=== PATIENT | female | born 1980 | race Caucasian/White ===

== ENCOUNTER 2016-03-21 13:34 | Inpatient (IN) | payer OTHER ==
[2016-03-21] MEDS ORDERED: HYDROmorphone 1 MG/ML SYRINGE IVP STA ×6 (14:01→17:46)
[2016-03-21] MEDS ORDERED: ONDANSETRON 4 MG/2 ML VIAL IVP STA (14:01)
[2016-03-21] MEDS ORDERED: SODIUM CHLORIDE 0.9% 1,000 ML IV ONE ×3 (14:01→15:59)
[2016-03-21] MEDS ORDERED: KETOROLAC 60 MG/2 ML VIAL IVP STA (14:01)
[2016-03-21] MEDS ORDERED: HYDROmorphone 1 MG/ML SYRINGE ONE ×6 (14:14→17:50)
[2016-03-21] MEDS ORDERED: KETOROLAC 30 MG/ML VIAL ONE (14:14)
[2016-03-21] MEDS ORDERED: ONDANSETRON 4 MG/2 ML VIAL ONE (14:14)
[2016-03-21] MEDS ORDERED: LORazepam 2 MG/ML SYRINGE IVP STA ×2 (14:44→16:53)
[2016-03-21] MEDS ORDERED: LORazepam 2 MG/ML SYRINGE ONE ×2 (14:45→17:01)
[2016-03-21] MEDS ORDERED: AZITHROMYCIN INJ 500 MG in SODIUM CHLORIDE 0.9% 250 ML IV STA (14:46)
[2016-03-21] MEDS ORDERED: cefTRIAXone 1 GM in SODIUM CHLORIDE 0.9% MINIBAG 100 ML IV STA (14:46)
[2016-03-21] MEDS ORDERED: cefTRIAXone 1 GM VIAL ONE (14:56)
[2016-03-21] MEDS ORDERED: ALBUTEROL NEB 2.5 MG/3 ML INH STA (15:21)
[2016-03-21] MEDS ORDERED: ALBUTEROL NEB 2.5 MG/3 ML INH ONE (15:35)
[2016-03-21] MEDS ORDERED: METOCLOPRAMIDE 10 MG/2 ML VIAL IVP STA (15:44)
[2016-03-21] MEDS ORDERED: DEXAMETHASONE 10 MG/ML VIAL IVP STA (15:52)
[2016-03-21] MEDS ORDERED: DEXAMETHASONE 10 MG/ML VIAL ONE (16:01)
[2016-03-21] MEDS ORDERED: METOCLOPRAMIDE 10 MG/2 ML VIAL IVP ONE (16:01)
[2016-03-21] MEDS ORDERED: MORPHINE ER 60 MG TABLET PO STA ×2 (16:53→17:01)
[2016-03-21] MEDS ORDERED: IOPAMIDOL-300 100 ML VIAL IVP ONE (16:54)
[2016-03-21] MEDS ORDERED: ENOXAPARIN 80 MG/0.8 ML SYRINGE SUBQ STA (17:45)
[2016-03-21] MEDS ORDERED: ENOXAPARIN 80 MG/0.8 ML SYRINGE SUBQ ONE (17:50)
[2016-03-21] MEDS ORDERED: PROMETHAZINE 25 MG SUPP PR PRN (18:08)
[2016-03-21] MEDS ORDERED: ONDANSETRON ODT 4 MG TABLET TL PRN (18:08)
[2016-03-21] MEDS ORDERED: HYDROmorphone PCA 10 MG IV PRN (18:10)
[2016-03-21] MEDS ORDERED: VANCOMYCIN PER PHARMACY 0 GM in SODIUM CHLORIDE 0.9% 250 ML IV SCH (19:00)
[2016-03-21] MEDS ORDERED: LORazepam 2 MG/ML SYRINGE IVP PRN (19:02)
[2016-03-21] MEDS: SODIUM CHLORIDE 0.9% 1,000 ML IV SCH (19:19)
[2016-03-21] MEDS: PIPERACILLIN/TAZOBACTAM 3.375 GM in SODIUM CHLORIDE 0.9% MINIBAG 100 ML IV SCH (19:23)
[2016-03-21] MEDS ORDERED: HYDROmorphone 1 MG/ML SYRINGE IVP PRN (19:39)
[2016-03-21] MEDS: VANCOMYCIN INJ 1 GM in SODIUM CHLORIDE 0.9% 250 ML IV SCH (20:22)
[2016-03-21] MEDS: oxyCODONE 5 MG TABLET PO SCH ×2 (20:23→21:03)
[2016-03-21] MEDS ORDERED: BUTALBITAL PO PRN ×2 (21:07→21:28)
[2016-03-21] MEDS ORDERED: ASPIRIN PO PRN ×2 (21:07→21:28)
[2016-03-21] MEDS ORDERED: CAFFEINE PO PRN ×2 (21:07→21:28)
[2016-03-21] MEDS: SODIUM CHLORIDE FLUSH 0.9% 10 ML SYRINGE IVP SCH (21:26)
[2016-03-21] MEDS: LORazepam 2 MG/ML SYRINGE IVP PRN (22:20)
[2016-03-21] MEDS: HYDROmorphone 1 MG/ML SYRINGE IVP PRN (22:23)
[2016-03-21] MEDS: HYDROmorphone PCA 10 MG IV PRN (23:42)
[2016-03-22] MEDS: oxyCODONE 5 MG TABLET PO SCH ×7 (00:28→21:04)
[2016-03-22] MEDS: HYDROmorphone 1 MG/ML SYRINGE IVP PRN ×8 (00:29→22:44)
[2016-03-22] MEDS: LORazepam 2 MG/ML SYRINGE IVP PRN ×6 (00:29→22:44)
[2016-03-22] MEDS: PIPERACILLIN/TAZOBACTAM 3.375 GM in SODIUM CHLORIDE 0.9% MINIBAG 100 ML IV SCH ×5 (00:31→23:54)
[2016-03-22] MEDS ORDERED: diphenhydrAMINE 25 MG CAPSULE PO SCH (03:00)
[2016-03-22] MEDS: HYDROmorphone PCA 10 MG IV PRN ×3 (05:09→17:28)
[2016-03-22] MEDS: SODIUM CHLORIDE FLUSH 0.9% 10 ML SYRINGE IVP SCH ×3 (06:01→22:00)
[2016-03-22] MEDS: ENOXAPARIN 80 MG/0.8 ML SYRINGE SUBQ SCH ×2 (06:40→18:33)
[2016-03-22] MEDS: PANTOPRAZOLE 40 MG TABLET PO SCH (06:41)
[2016-03-22] MEDS: POTASSIUM CHLORIDE 20 MEQ TABLET PO SCH (08:34)
[2016-03-22] MEDS: DEXAMETHASONE 4 MG TABLET PO SCH (08:34)
[2016-03-22] MEDS: VANCOMYCIN INJ 1 GM in SODIUM CHLORIDE 0.9% 250 ML IV SCH ×2 (08:34→20:37)
[2016-03-22] MEDS: SODIUM CHLORIDE 0.9% 1,000 ML IV SCH ×3 (08:34→23:44)
[2016-03-22] MEDS: POLYETHYLENE GLYCOL 3350 17 GM PACKET PO SCH (10:03)
[2016-03-22] MEDS: oxyCODONE 30 MG TABLET PO SCH ×5 (12:52→23:53)
[2016-03-22] MEDS ORDERED: methylPREDNISolone SUCCINATE 125 MG/2 ML VIAL IVP ONE (13:30)
[2016-03-22] MEDS: MORPHINE 2 MG/ML SYRINGE IVP PRN ×3 (14:07→22:43)
[2016-03-22] MEDS ORDERED: SODIUM CHLORIDE 0.9% 1,000 ML IV ONE (15:00)
[2016-03-22] MEDS ORDERED: METHYLNALTREXONE 12 MG/0.6 ML VIAL SUBQ ONE (16:00)
[2016-03-22] MEDS: DOCUSATE SODIUM 250 MG CAPSULE PO PRN (22:29)
[2016-03-22] MEDS: SENNA 8.6 MG TABLET PO PRN (22:29)
[2016-03-23] MEDS: HYDROmorphone PCA 10 MG IV PRN ×3 (00:09→17:52)
[2016-03-23] MEDS: diphenhydrAMINE 25 MG CAPSULE PO PRN ×2 (00:16→21:22)
[2016-03-23] MEDS ORDERED: GABAPENTIN 100 MG CAPSULE PO SCH (00:30)
[2016-03-23] MEDS: LORazepam 2 MG/ML SYRINGE IVP PRN ×11 (00:40→22:24)
[2016-03-23] MEDS: MORPHINE 2 MG/ML SYRINGE IVP PRN ×12 (00:41→22:24)
[2016-03-23] MEDS: HYDROmorphone 1 MG/ML SYRINGE IVP PRN ×11 (00:41→22:23)
[2016-03-23] MEDS: oxyCODONE 30 MG TABLET PO SCH ×7 (02:48→21:20)
[2016-03-23] MEDS: ENOXAPARIN 80 MG/0.8 ML SYRINGE SUBQ SCH ×2 (06:04→18:08)
[2016-03-23] MEDS: PIPERACILLIN/TAZOBACTAM 3.375 GM in SODIUM CHLORIDE 0.9% MINIBAG 100 ML IV SCH ×3 (06:04→18:25)
[2016-03-23] MEDS: PANTOPRAZOLE 40 MG TABLET PO SCH (06:05)
[2016-03-23] MEDS: oxyCODONE 5 MG TABLET PO SCH ×3 (06:05→22:07)
[2016-03-23] MEDS: SODIUM CHLORIDE FLUSH 0.9% 10 ML SYRINGE IVP SCH ×3 (06:13→20:20)
[2016-03-23] MEDS: VANCOMYCIN INJ 1 GM in SODIUM CHLORIDE 0.9% 250 ML IV SCH ×2 (08:25→16:27)
[2016-03-23] MEDS: DEXAMETHASONE 4 MG TABLET PO SCH (08:25)
[2016-03-23] MEDS: POTASSIUM CHLORIDE 20 MEQ TABLET PO SCH (08:25)
[2016-03-23] MEDS: POLYETHYLENE GLYCOL 3350 17 GM PACKET PO SCH (09:18)
[2016-03-23] MEDS: POTASSIUM CHLOR 10 MEQ/100 ML 100 ML IV SCH ×4 (10:50→15:48)
[2016-03-23] MEDS: ALBUTEROL NEB 2.5 MG/3 ML INH PRN (12:30)
[2016-03-23] MEDS: SODIUM CHLORIDE 0.9% 1,000 ML IV SCH ×2 (13:13→22:10)
[2016-03-23] MEDS: GABAPENTIN 100 MG CAPSULE PO SCH ×2 (14:45→22:08)
[2016-03-23] MEDS: SODIUM CHLORIDE FLUSH 0.9% 10 ML SYRINGE IVP PRN ×3 (15:35→22:25)
[2016-03-23] MEDS: DOCUSATE SODIUM 250 MG CAPSULE PO PRN (21:21)
[2016-03-23] MEDS: SENNA 8.6 MG TABLET PO PRN (21:21)
[2016-03-24] MEDS: oxyCODONE 30 MG TABLET PO SCH ×8 (00:09→21:26)
[2016-03-24] MEDS: HYDROmorphone PCA 10 MG IV PRN ×4 (00:10→21:40)
[2016-03-24] MEDS: PIPERACILLIN/TAZOBACTAM 3.375 GM in SODIUM CHLORIDE 0.9% MINIBAG 100 ML IV SCH ×4 (00:10→18:15)
[2016-03-24] MEDS: MORPHINE 2 MG/ML SYRINGE IVP PRN ×8 (00:25→13:48)
[2016-03-24] MEDS: LORazepam 2 MG/ML SYRINGE IVP PRN ×11 (00:25→23:39)
[2016-03-24] MEDS: HYDROmorphone 1 MG/ML SYRINGE IVP PRN ×10 (00:27→23:39)
[2016-03-24] MEDS: VANCOMYCIN INJ 1 GM in SODIUM CHLORIDE 0.9% 250 ML IV SCH ×3 (00:44→16:43)
[2016-03-24] MEDS: ENOXAPARIN 80 MG/0.8 ML SYRINGE SUBQ SCH (06:04)
[2016-03-24] MEDS: oxyCODONE 5 MG TABLET PO SCH ×3 (06:05→22:21)
[2016-03-24] MEDS: GABAPENTIN 100 MG CAPSULE PO SCH ×3 (06:05→22:20)
[2016-03-24] MEDS: SODIUM CHLORIDE FLUSH 0.9% 10 ML SYRINGE IVP SCH ×3 (06:11→21:27)
[2016-03-24] MEDS: PANTOPRAZOLE 40 MG TABLET PO SCH (06:30)
[2016-03-24] MEDS: POLYETHYLENE GLYCOL 3350 17 GM PACKET PO SCH (08:33)
[2016-03-24] MEDS: POTASSIUM CHLORIDE 20 MEQ TABLET PO SCH (08:34)
[2016-03-24] MEDS: DEXAMETHASONE 4 MG TABLET PO SCH (08:34)
[2016-03-24] MEDS: SODIUM CHLORIDE 0.9% 1,000 ML IV SCH (08:43)
[2016-03-24] MEDS: SODIUM CHLORIDE FLUSH 0.9% 10 ML SYRINGE IVP PRN ×3 (12:37→18:28)
[2016-03-24] MEDS: MAGNESIUM SULFATE 2 GRAM 50 ML IV SCH ×2 (13:09→14:15)
[2016-03-24] MEDS ORDERED: SOAP SUDS ENEMA 1 EACH RC ONE (16:00)
[2016-03-24] MEDS: SODIUM CHLORIDE 0.9% 500 ML IV SCH (16:01)
[2016-03-24] MEDS: MORPHINE ER 15 MG TABLET PO SCH ×2 (16:03→22:20)
[2016-03-24] MEDS: MORPHINE ER 60 MG TABLET PO SCH ×2 (16:04→22:20)
[2016-03-24] MEDS: RIVAROXABAN 15 MG TABLET PO SCH (16:43)
[2016-03-24] MEDS ORDERED: HYDROmorphone 1 MG/ML SYRINGE IVP ONE (17:30)
[2016-03-24] MEDS: ALBUTEROL NEB 2.5 MG/3 ML INH PRN (21:20)
[2016-03-25] MEDS: oxyCODONE 30 MG TABLET PO SCH ×5 (00:10→12:16)
[2016-03-25] MEDS: PIPERACILLIN/TAZOBACTAM 3.375 GM in SODIUM CHLORIDE 0.9% MINIBAG 100 ML IV SCH ×2 (00:10→05:59)
[2016-03-25] MEDS: VANCOMYCIN INJ 1 GM in SODIUM CHLORIDE 0.9% 250 ML IV SCH ×2 (01:15→09:07)
[2016-03-25] MEDS: LORazepam 2 MG/ML SYRINGE IVP PRN ×6 (01:37→10:50)
[2016-03-25] MEDS: HYDROmorphone 1 MG/ML SYRINGE IVP PRN ×6 (01:38→10:50)
[2016-03-25] MEDS: HYDROmorphone PCA 10 MG IV PRN ×2 (03:08→11:30)
[2016-03-25] MEDS: oxyCODONE 5 MG TABLET PO SCH ×2 (05:57→13:47)
[2016-03-25] MEDS: MORPHINE ER 60 MG TABLET PO SCH ×2 (05:57→13:47)
[2016-03-25] MEDS: SODIUM CHLORIDE FLUSH 0.9% 10 ML SYRINGE IVP SCH ×2 (05:58→09:14)
[2016-03-25] MEDS: GABAPENTIN 100 MG CAPSULE PO SCH ×2 (05:58→13:48)
[2016-03-25] MEDS: MORPHINE ER 15 MG TABLET PO SCH ×2 (05:58→13:47)
[2016-03-25] MEDS: SODIUM CHLORIDE FLUSH 0.9% 10 ML SYRINGE IVP PRN (05:58)
[2016-03-25] MEDS: PANTOPRAZOLE 40 MG TABLET PO SCH (06:15)
[2016-03-25] MEDS: POLYETHYLENE GLYCOL 3350 17 GM PACKET PO SCH (09:10)
[2016-03-25] MEDS: RIVAROXABAN 15 MG TABLET PO SCH (09:10)
[2016-03-25] MEDS: DEXAMETHASONE 4 MG TABLET PO SCH (09:13)
[2016-03-25] MEDS: POTASSIUM CHLORIDE 20 MEQ TABLET PO SCH (09:13)
[2016-03-25] MEDS ORDERED: METHYLNALTREXONE 12 MG/0.6 ML VIAL SUBQ ONE ×2 (10:50→13:00)
[2016-03-25] MEDS ORDERED: HYDROmorphone PCA 10 MG IV PRN (11:39)
[2016-03-25] MEDS ORDERED: CLINDAMYCIN 150 MG CAPSULE PO SCH (12:00)
[2016-03-25] MEDS: SODIUM CHLORIDE 0.9% 500 ML IV SCH (12:19)
[2016-03-25] MEDS ORDERED: HYDROmorphone 1 MG/ML SYRINGE IVP PRN (13:02)
[2016-03-25] MEDS ORDERED: LORazepam 2 MG/ML SYRINGE IVP PRN (14:00)
== END 2016-03-25 14:10 | disposition home or self-care (01) | DRG 597 ==
DX: C79.81 Secondary malignant neoplasm of breast (principal); I26.90 Septic pulmonary embolism without acute cor pulmonale; J15.211 Pneumonia due to Methicillin susceptible Staphylococcus aureus; C78.00 Secondary malignant neoplasm of unspecified lung; C78.7 Secondary malignant neoplasm of liver and intrahepatic bile duct; C79.51 Secondary malignant neoplasm of bone; G89.3 Neoplasm related pain (acute) (chronic); E87.6 Hypokalemia; E83.42 Hypomagnesemia; E83.51 Hypocalcemia; K59.03 Drug induced constipation; T40.2X5A Adverse effect of other opioids, initial encounter; Y92.239 Unspecified place in hospital as the place of occurrence of the external cause; D64.81 Anemia due to antineoplastic chemotherapy; T45.1X5A Adverse effect of antineoplastic and immunosuppressive drugs, initial encounter; C50.919 Malignant neoplasm of unspecified site of unspecified female breast; F17.211 Nicotine dependence, cigarettes, in remission; Z79.899 Other long term (current) drug therapy; Z79.891 Long term (current) use of opiate analgesic

== ENCOUNTER 2016-04-19 | Outpatient (CLI) | payer OTHER | END 2016-04-19 22:25 | disposition critical access hospital (66) | DX: R10.31 Right lower quadrant pain (principal) | CPT/HCPCS: A0425; A0429 ==

== ENCOUNTER 2016-04-19 22:37 | Inpatient (IN) | payer MEDICARE, OTHER ==
[2016-04-19] MEDS ORDERED: HYDROmorphone 1 MG/ML SYRINGE IVP STA ×2 (22:44→23:30)
[2016-04-19] MEDS ORDERED: SODIUM CHLORIDE 0.9% 1,000 ML IV ONE (22:44)
[2016-04-19] MEDS ORDERED: HYDROmorphone 1 MG/ML SYRINGE ONE ×2 (23:07→23:32)
[2016-04-19] MEDS ORDERED: LORazepam 2 MG/ML SYRINGE IVP STA ×2 (23:38→23:42)
[2016-04-19] MEDS ORDERED: KETOROLAC 60 MG/2 ML VIAL IVP STA (23:42)
[2016-04-19] MEDS ORDERED: KETOROLAC 30 MG/ML VIAL ONE (23:44)
[2016-04-19] MEDS ORDERED: LORazepam 2 MG/ML SYRINGE ONE (23:44)
[2016-04-20] MEDS ORDERED: IOPAMIDOL-300 100 ML VIAL IVP ONE (00:31)
[2016-04-20] MEDS ORDERED: HYDROmorphone 1 MG/ML SYRINGE IVP STA ×3 (00:35→02:25)
[2016-04-20] MEDS ORDERED: HYDROmorphone 1 MG/ML SYRINGE ONE ×3 (00:41→02:28)
[2016-04-20] MEDS ORDERED: PROCHLORPERAZINE 10 MG/2 ML VIAL IVP PRN (02:14)
[2016-04-20] MEDS ORDERED: TEMAZEPAM 15 MG CAPSULE PO PRN (02:14)
[2016-04-20] MEDS ORDERED: ONDANSETRON 4 MG/2 ML VIAL IVP PRN (02:14)
[2016-04-20] MEDS ORDERED: ACETAMINOPHEN 325 MG TABLET PO PRN (02:14)
[2016-04-20] MEDS ORDERED: SODIUM CHLORIDE FLUSH 0.9% 10 ML SYRINGE IVP PRN (02:14)
[2016-04-20] MEDS ORDERED: HYDROmorphone PCA 10 MG IV PRN (02:18)
[2016-04-20] MEDS ORDERED: ALBUTEROL NEB 2.5 MG/3 ML INH PRN (02:24)
[2016-04-20] MEDS ORDERED: diphenhydrAMINE INJ 50 MG/ML VIAL IV PRN (02:38)
[2016-04-20] MEDS ORDERED: METHYLNALTREXONE 12 MG/0.6 ML VIAL SUBQ ONE (02:39)
[2016-04-20] MEDS ORDERED: PROMETHAZINE INJ 25 MG in SODIUM CHLORIDE 0.9% 50 ML IV PRN (03:27)
[2016-04-20] MEDS: LORazepam 2 MG/ML SYRINGE IVP PRN ×4 (03:44→14:36)
[2016-04-20] MEDS: LACTATED RINGERS 1,000 ML IV SCH ×2 (03:53→11:18)
[2016-04-20] MEDS: AMPICILLIN/SULBACTAM 3 GM in SODIUM CHLORIDE 0.9% MINIBAG 100 ML IV SCH ×3 (03:54→13:59)
[2016-04-20] MEDS: HYDROmorphone PCA 10 MG IV PRN ×3 (04:09→12:10)
[2016-04-20] MEDS: HYDROmorphone 1 MG/ML SYRINGE IVP PRN ×2 (04:24→15:48)
[2016-04-20] MEDS: GABAPENTIN 100 MG CAPSULE PO SCH ×2 (05:50→13:58)
[2016-04-20] MEDS: SODIUM CHLORIDE FLUSH 0.9% 10 ML SYRINGE IVP SCH ×2 (05:50→13:04)
[2016-04-20] MEDS ORDERED: RIVAROXABAN 15 MG TABLET PO SCH (08:00)
[2016-04-20] MEDS ORDERED: SACCHAROMYCES BOULARDII 250 MG CAPSULE PO SCH (08:00)
[2016-04-20] MEDS ORDERED: ASPIRIN PO PRN (09:00)
[2016-04-20] MEDS ORDERED: CAFFEINE PO PRN (09:00)
[2016-04-20] MEDS ORDERED: SENNA 8.6 MG TABLET PO SCH (09:00)
[2016-04-20] MEDS ORDERED: DEXAMETHASONE 4 MG TABLET PO SCH (09:00)
[2016-04-20] MEDS ORDERED: POLYETHYLENE GLYCOL 3350 17 GM PACKET PO SCH ×2 (09:00)
[2016-04-20] MEDS ORDERED: BUTALBITAL PO PRN (09:00)
[2016-04-20] MEDS ORDERED: DOCUSATE SODIUM 250 MG CAPSULE PO SCH (09:00)
[2016-04-20] MEDS ORDERED: PANTOPRAZOLE 40 MG VIAL IVP SCH (09:00)
[2016-04-22] MEDS ORDERED: METHYLNALTREXONE 12 MG/0.6 ML VIAL SUBQ PRN (11:54)
== END 2016-04-20 16:31 | disposition home or self-care (01) | DRG 374 ==
DX: C78.6 Secondary malignant neoplasm of retroperitoneum and peritoneum (principal); I26.99 Other pulmonary embolism without acute cor pulmonale; C78.00 Secondary malignant neoplasm of unspecified lung; C78.2 Secondary malignant neoplasm of pleura; C78.1 Secondary malignant neoplasm of mediastinum; C78.7 Secondary malignant neoplasm of liver and intrahepatic bile duct; C79.51 Secondary malignant neoplasm of bone; C50.919 Malignant neoplasm of unspecified site of unspecified female breast; G89.3 Neoplasm related pain (acute) (chronic); Z92.21 Personal history of antineoplastic chemotherapy; F32.9 Major depressive disorder, single episode, unspecified; F41.9 Anxiety disorder, unspecified; K21.9 Gastro-esophageal reflux disease without esophagitis; J45.909 Unspecified asthma, uncomplicated; Z90.13 Acquired absence of bilateral breasts and nipples; Z79.01 Long term (current) use of anticoagulants; Z80.3 Family history of malignant neoplasm of breast; Z80.0 Family history of malignant neoplasm of digestive organs; Z83.3 Family history of diabetes mellitus; K59.03 Drug induced constipation; T40.2X5A Adverse effect of other opioids, initial encounter

== ENCOUNTER 2016-05-14 11:15 | Outpatient (CLI) | payer OTHER, MEDICARE | END 2016-05-14 11:16 | disposition critical access hospital (66) | DX: R11.2 Nausea with vomiting, unspecified (principal) | CPT/HCPCS: A0425; A0427 ==

== ENCOUNTER 2016-05-14 11:30 | Emergency (ER) | payer OTHER, MEDICARE ==
[2016-05-14] MEDS ORDERED: SODIUM CHLORIDE 0.9% 1,000 ML IV ONE (12:03)
[2016-05-14] MEDS ORDERED: ONDANSETRON 4 MG/2 ML VIAL IVP STA ×2 (12:14→16:05)
[2016-05-14] MEDS ORDERED: HYDROmorphone 1 MG/ML SYRINGE IVP STA ×4 (12:14→15:33)
[2016-05-14] MEDS ORDERED: ONDANSETRON 4 MG/2 ML VIAL ONE ×2 (12:25→16:19)
[2016-05-14] MEDS ORDERED: HYDROmorphone 1 MG/ML SYRINGE ONE ×4 (12:25→15:37)
[2016-05-14] MEDS ORDERED: LORazepam 2 MG/ML SYRINGE ONE (13:03)
[2016-05-14] MEDS ORDERED: LORazepam 2 MG/ML SYRINGE IVP STA (13:03)
[2016-05-14] MEDS ORDERED: LACTATED RINGERS 1,000 ML IV STA (13:17)
[2016-05-14] MEDS ORDERED: IOPAMIDOL-300 100 ML VIAL IVP ONE (13:53)
== END 2016-05-14 16:56 | disposition home or self-care (01) ==
DX: R11.2 Nausea with vomiting, unspecified (principal); R00.0 Tachycardia, unspecified; C50.919 Malignant neoplasm of unspecified site of unspecified female breast; C78.7 Secondary malignant neoplasm of liver and intrahepatic bile duct; C79.51 Secondary malignant neoplasm of bone; E87.6 Hypokalemia; R03.0 Elevated blood-pressure reading, without diagnosis of hypertension; D64.9 Anemia, unspecified; Z87.891 Personal history of nicotine dependence; Z95.828 Presence of other vascular implants and grafts; Z90.10 Acquired absence of unspecified breast and nipple; Z79.891 Long term (current) use of opiate analgesic
CPT/HCPCS: 36415; 71020; 71275; 80053; 81003; 81025; 83605; 83690; 85025; 87040; 93005; 93010; 96361; 96374; 96375; 96376; 99284; 99285; J1170; J2060; Q9967

== ENCOUNTER 2016-05-20 13:08 | Emergency (ER) | payer OTHER, MEDICARE ==
[2016-05-20] MEDS ORDERED: HYDROmorphone 1 MG/ML SYRINGE IVP STA ×2 (13:52→17:25)
[2016-05-20] MEDS ORDERED: SODIUM CHLORIDE 0.9% 2,000 ML IV ONE (13:52)
[2016-05-20] MEDS ORDERED: PROMETHAZINE INJ 25 MG in SODIUM CHLORIDE 0.9% 50 ML IV STA (13:53)
[2016-05-20] MEDS ORDERED: HYDROmorphone 1 MG/ML SYRINGE ONE ×3 (13:54→17:30)
[2016-05-20] MEDS ORDERED: PROMETHAZINE 25 MG/1 ML VIAL ONE (13:54)
[2016-05-20] MEDS ORDERED: LORazepam 2 MG/ML SYRINGE IVP STA (15:32)
[2016-05-20] MEDS ORDERED: ONDANSETRON 4 MG/2 ML VIAL IVP STA ×2 (15:33)
[2016-05-20] MEDS ORDERED: POTASSIUM BICARB 25 MEQ TABLET PO STA (15:35)
[2016-05-20] MEDS ORDERED: POTASSIUM CHLOR 10 MEQ/100 ML 100 ML IV ONE ×2 (15:35→15:40)
[2016-05-20] MEDS ORDERED: NITROFURANTOIN MACRO 100 MG CAPSULE PO STA (15:36)
[2016-05-20] MEDS ORDERED: POTASSIUM BICARB 25 MEQ TABLET PO ONE (15:40)
[2016-05-20] MEDS ORDERED: NITROFURANTOIN MACRO 100 MG CAPSULE PO ONE (15:40)
[2016-05-20] MEDS ORDERED: LORazepam 2 MG/ML SYRINGE ONE (15:40)
[2016-05-20] MEDS ORDERED: ONDANSETRON 4 MG/2 ML VIAL ONE (15:40)
[2016-05-20] MEDS ORDERED: HALOPERIDOL 5 MG/ML VIAL IVP ONE (16:38)
[2016-05-20] MEDS ORDERED: HALOPERIDOL 5 MG/ML VIAL ONE (16:48)
[2016-05-20] MEDS ORDERED: KETOROLAC 60 MG/2 ML VIAL IVP STA (17:25)
[2016-05-20] MEDS ORDERED: KETOROLAC 30 MG/ML VIAL ONE (17:30)
== END 2016-05-20 18:14 | disposition home or self-care (01) ==
DX: R11.2 Nausea with vomiting, unspecified (principal); R10.9 Unspecified abdominal pain; E87.6 Hypokalemia; E86.0 Dehydration; N30.00 Acute cystitis without hematuria; Z85.3 Personal history of malignant neoplasm of breast; C78.00 Secondary malignant neoplasm of unspecified lung; C79.51 Secondary malignant neoplasm of bone; C78.7 Secondary malignant neoplasm of liver and intrahepatic bile duct; M54.9 Dorsalgia, unspecified; G89.29 Other chronic pain; Z87.891 Personal history of nicotine dependence
CPT/HCPCS: 36415; 80053; 81001; 83690; 85025; 96365; 96376; 99283; 99284; A9270; J1170; J2060

== ENCOUNTER 2016-06-07 08:45 | Emergency (ER) | payer OTHER, MEDICARE ==
[2016-06-07] MEDS ORDERED: HYDROmorphone 1 MG/ML SYRINGE IVP STA ×4 (09:01→12:56)
[2016-06-07] MEDS ORDERED: ONDANSETRON 4 MG/2 ML VIAL IVP STA ×3 (09:01→12:56)
[2016-06-07] MEDS ORDERED: ONDANSETRON 4 MG/2 ML VIAL ONE ×4 (09:02→13:20)
[2016-06-07] MEDS ORDERED: HYDROmorphone 1 MG/ML SYRINGE ONE ×4 (09:02→13:18)
[2016-06-07] MEDS ORDERED: SODIUM CHLORIDE 0.9% 1,000 ML IV ONE ×2 (09:02)
[2016-06-07] MEDS ORDERED: PROMETHAZINE INJ 25 MG in SODIUM CHLORIDE 0.9% 50 ML IV STA ×2 (09:03→11:31)
[2016-06-07] MEDS ORDERED: PROMETHAZINE 25 MG/1 ML VIAL ONE ×2 (09:12→11:40)
== END 2016-06-07 14:10 | disposition home or self-care (01) ==
DX: R10.84 Generalized abdominal pain (principal); E87.6 Hypokalemia; R11.2 Nausea with vomiting, unspecified; R19.7 Diarrhea, unspecified; C78.7 Secondary malignant neoplasm of liver and intrahepatic bile duct; C78.00 Secondary malignant neoplasm of unspecified lung; C79.51 Secondary malignant neoplasm of bone; Z85.3 Personal history of malignant neoplasm of breast; Z87.891 Personal history of nicotine dependence
CPT/HCPCS: 36415; 80053; 83690; 83735; 85025; 87045; 87046; 87493; 96361; 96365; 96375; 96376; 99284; J1170